=== PATIENT | male | born 1995 | race Caucasian/White ===

== ENCOUNTER 2024-12-05 17:37 | Inpatient (IN) | payer OTHER, BC, MEDICAID, SELFPAY ==
--- NOTE | 2024-12-05 17:43 | ED.C_ITS ---
HPI - Psych General: Stated Complaint: 96 Time Seen by Provider: 12/05/24 17:39 Source: patient and police Mode of arrival: ambulatory Limitations: no limitations History of Present Illness: 29-year-old male who is here with police for acute psychosis. Patient has known schizophrenic has not been taking his psych meds. Patient is been talking to himself and seeing people there. Patient here is hallucinating and quite paranoid. Associated symptoms: Reports auditory hallucinations and visual hallucinations Review of Systems Psych: Reports: visual hallucinations and auditory hallucinations Physical Exam Const: COMMON NORMALS: no acute distress, patient oriented x3 and healthy appearing HENMT: COMMON NORMALS: normocephalic and atraumatic HEAD & SCALP: normocephalic and atraumatic Neck/C-Spine: COMMON NORMALS: full ROM and supple Chest: COMMONS NORMALS: normal inspection of the chest Resp: COMMON NORMALS: normal respiratory effort, No retractions, No use of accessory muscles and clear to auscultation bilaterally AUSCULTATION: clear to auscultation bilaterally Cardio: COMMON NORMALS: regular rate, regular rhythm and No murmurs present (Cardio) RATE: regular rate RHYTHM: regular rhythm GI: COMMON NORMALS: Normal to inspection, nondistended, normoactive bowel sounds present, Soft to palpation, non-tender and no masses PALPATION: Yes Soft to palpation Extremity: COMMON NORMALS: normal to inspection and full ROM Neuro: COMMON NORMALS: patient oriented x3, moves all extremities and no focal motor deficits Psych: COMMON NORMALS: mental status grossly normal and cooperative ATTITUDE: Yes paranoid THOUGHT PROCESS: Loose association thought process present THOUGHT CONTENT: Yes Hallucination(s) present Skin: COMMON NORMALS: no rashes or lesions noted and no wounds GENERAL SKIN EXAM: no rashes or lesions noted [facility] - Psych Medical Decision Making Patient presents for acute psychosis he is hallucinating here. Patient's m edically clear labs are normal he is under 96-hour court hold spoke to Dr. Martínez and will admit the psych santiago here. Medical Records I reviewed the patient's medical records. Lab Data I reviewed the patient's lab results. No radiology studies performed this visit Discharge Plan Discharge Patient Disposition: Admitted As Inpatient Clinical Impression: Acute psychosis Condition: Stable Coding Level of Care Code ED [employer] for Lindsay Ashley
[2024-12-05 17:55] VITALS: BP 158/87; PULSE 79; RESP 18; TEMP 36.7; O2SAT 98
[2024-12-05 18:09] LABS: Hematocrit 45.9 % (37-53); Hemoglobin 15.10 g/dL (11.27-16.99); Mean Corpuscular HGB Conc 32.9 g/dL (30-55); Mean Corpuscular Hemoglobin 29.4 pg (27-33); Mean Corpuscular Volume 89.5 fl (82-101); Nucleated Red Blood Cells % 0 %; Platelet Count 227 10^3/cmm (157-399); Red Blood Count 5.13 10^6/uL (3.85-5.65); White Blood Count 11.05 10^3/uL (3.29-11.43)
[2024-12-05 18:28] LABS: Alanine Aminotransferase 17 U/L (0-41); Albumin Level 4.8 g/dL (3.5-5.2); Alkaline Phosphatase 89 U/L (40-130); Anion Gap 17.1 (5-19); Aspartate Amino Transferase 17 U/L (0-40); Blood Urea Nitrogen 12 mg/dL (6-20); Calcium 9.4 mg/dL (8.5-10.5); Carbon Dioxide 23 mmol/L (22-29); Chloride 103 mmol/L (98-107); Globulin 2.9 g/dL (1.3-4.6); Glucose 84 mg/dL (65-115); Osmolality Calculated 287 mOsm/kg (285-295); Potassium 4.1 mmol/L (3.5-5.1); Sodium 139 mmol/L (136-145); Total Protein 7.7 g/dL (6.6-8.7)
[2024-12-05 18:31] LABS: Acetaminophen < 5.0 ug/mL (10-30); Alcohol Level < 10 mg/dL (0-10); Salicylate < 0.3 mg/dL (3-10)
--- NOTE | 2024-12-05 18:38 | PC.NURSE ---
Pts 96 hour hold rights were read to him. Security present
[2024-12-05 19:13] VITALS: BP 148/85; PULSE 81; O2SAT 99
[2024-12-05 19:20] VITALS: BP 138/92; PULSE 97; RESP 17; TEMP 36.8; O2SAT 97
[2024-12-05 20:37] VITALS: BP 138/92; PULSE 97; RESP 17; TEMP 36.8; O2SAT 97
[2024-12-06 06:00] VITALS: BP 105/69; PULSE 73; RESP 17; TEMP 36.6; O2SAT 97
--- NOTE | 2024-12-06 09:29 | P.NPUHP_ITS ---
Providers/Chief Complaint 2 Admitting Physician: Rodney Moctezuma MD Chief Complaint: 96 HPI NPU History of Present Illness Pankaj Sofia is a 29 year old male who presented to the emergency department accompanied by police on a involuntary hold after he had been paranoid and hallucinating. The patient was admitted to the neuropsychiatric unit for further evaluation and treatment. He reports that he had recently been hospitalized at [facility] for psychiatric issues in June 2024. He reports that he had ran out of his medications several days ago and reports that he has been hearing things. He had reported that he was on certain as to whether the voices were his own or someone else's. He had admitted to using methamphetamine intermittently and stated that he last used approximately 1 week prior to his admission here. He reports that he has been using marijuana heavily for several years since the age of [age] years old. The patient had denied any thought broadcasting or thought insertion. He reported that he felt that his thoughts were his own but did report at times to having conversations with people who were not present. He denied any suicidal thoughts at this time. He reports that he has been homeless and states that he wishes to remain homeless and walked to [place] eventually as he has never visited the [facility]. He had denied any prior history of tamar. He had reported that other doctors had diagnosed him previously with bipolar disorder but he states that he does not believe that that is the case. He had reported previously having been placed on multiple medications including long-acting injectable antipsychotics but stated that he never took those injectables on a monthly basis after he had been discharged from the psychiatric facilities. He currently denies any feelings of hopelessness or worthlessness. The patient was a poor historian. Inpatient psychiatric history: He reports at least 6 different hospitalizations at [facility] with his first hospitalization beginning in February 2023 and his last hospitalization occurring in June 2024. Outpatient psychiatric history: He had reported no prior outpatient follow-up with psychiatric organizations or any prior history of outpatient psychotherapy. He had reported previous medications included Invega Sustenna, Seroquel, Remeron, Cogentin, BuSpar, and gabapentin. Substance abuse history: He had reported no history of outpatient or inpatient substance abuse treatment. He had reported having used methamphetamine beginning 2 years ago and reports marijuana use since the age of 14. Medical history/surgical history: None Allergies: No known drug allergies Legal history: None reported Family psychiatric history: None reported Social history:Patient raised in [place] by both his parents until they when he was a teenager. He had reported that he had graduated high school and went to [employer] for 1 semester until he had quit going to school entirely. He had denied any history of sexual physical or emotional abuse. He has a sister and a half brother. He had reported that he has never been and has no children. He reports that he has struggled with maintaining jobs in the past and describes himself as being homeless. He did not report to his parents as supportive. Meds NPU Home Medications ?Medication ?Instructions ?Recorded ?Confirmed ?Last Taken ?Type No Known Home Medications 12/05/2411/13 Unknown History Mental Status Exam 2 MSE Comments: The patient is a healthy white male who appeared his stated age with normal gait. His hygiene was poor. There was no evidence of any abnormal involuntary motor movements, tics, or tremors appreciated. His speech was slow and steady with some decrease in overall spontaneity appreciated. His volume was normal. His mood was described as okay. His affect was blunted and mood incongruent. His thought process was linear and mostly logical but very superficial. His thought content revealed no suicidal or homicidal ideation. His thought content was impoverished. He did at times appear to be responding to internal stimuli but denied auditory or visual hallucinations despite appearing to have a conversation with someone nearby. There was no evidence of any overt delusions. He was alert and oriented to person place and time. His attention span was poor. His recent and remote memory appeared grossly intact. His insight is poor. His judgment is poor. His impulse control appeared limited. Vitals/I&O/Wt Last Vital Signs Temp 97.9 F 12/06/24 06:00 Pulse 73 12/06/24 06:00 Resp 17 12/06/24 06:00 BP 105/69 12/06/24 06:00 Pulse Ox 97 12/06/24 06:00 O2 Del Method Room Air 12/06/24 06:00 Weight last 48 hrs Weight 77.111 kg Data NPU 12/05/24 17:47 12/05/24 17:47 A&P Assessment and plan 1. Acute psychosis: 2. Schizophrenia, paranoid type: 3. Methamphetamine abuse: Plan: 29-year-old male with multiple inpatient hospitalizations and a history of noncompliance with his medications who presents here having admitted use of methamphetamine and appearing psychotic and on hold. #1.? Engage patient in individual, milieu and group therapy. #2?? Recommend sober living treatment at the highest level of care to which the patient is willing to commit. #3??? Order Urine drug screen. ? #4?? TO-15 minute checks? #5?? Will attempt to gather collateral information including recent hospitalization at [facility] #6. Start Abilify 10mg daily with plan for IM Abilify Sustenna. PDMP PDMP Reviewed: Not Reviewed Involuntary Hold Information 2 Hold Status: Legal Status: 96 Hour Hold Date/Time Hold Expires: 1 @17:45 Attestations NPU 2 Medical Necessity Statement*: Inpatient hospitalization is medically necessary and be clinically appropriate intervention at this time.? We will monitor/initiate medications and make changes as indicated.? He will be in the hospital for over 2 midnights.? The patient's likely length of stay is 7-10 days. Coding Level of Care Code Acute Code for g Fwd Diagnoses Acute psychosis F23 Schizophrenia, paranoid type F20.0 Methamphetamine abuse F15.10
[2024-12-06 13:48] VITALS: BP 114/70; PULSE 88; RESP 18; TEMP 36.8; O2SAT 98
[2024-12-06 17:21] LABS: PCP Screen Urine Negative (Negative)
[2024-12-06 20:11] VITALS: BP 109/65; PULSE 111; RESP 18; TEMP 36.9; O2SAT 98
[2024-12-07 02:17] VITALS: BMI 21.6
[2024-12-07 06:00] VITALS: BP 114/75; PULSE 104; RESP 15; TEMP 36.6; O2SAT 98
[2024-12-07 14:00] VITALS: BP 110/68; PULSE 106; RESP 18; TEMP 37; O2SAT 97
--- NOTE | 2024-12-07 16:29 | P.NPUPN_ITS ---
Subjective NPU 2 Subjective: 29-year-old male with a history of multi ple recent hospitalizations and a history of psychosis admitted with auditory hallucinations and paranoia. The patient's urine screen was negative for amphetamines but positive for marijuana. The patient had been compliant with Abilify. He had reported struggles with concentration. He had been more engaged in self-care as he had showered today without any prompting. He had reported adequate sleep. He had admitted to history of noncompliance with his medication regimen and continued to report that he wished to go to [place]. Mental Status Exam 2 MSE Comments: The patient is a healthy white male who appeared his stated age with normal gait. His hygiene was better today. There was no evidence of any abnormal involuntary motor movements, tics, or tremors appreciated. His speech was slow and steady with some slight increase in productivity compared to prior day. His volume was normal. His mood was described as okay. His affect was blunted and mood incongruent. His thought process was linear and logical with no derailment today. His thought content revealed no suicidal or homicidal ideation. His thought content was impoverished. He did at times appear to be responding to internal stimuli but denied auditory or visual hallucinations despite appearing to have a conversation with someone nearby. There was no evidence of any overt delusions. He was alert and oriented to person place and time. His attention span was poor. His recent and remote memory appeared grossly intact. His insight is poor. His judgment is poor. His impulse control appeared limited. Vitals/I&O/Wt Last Vital Signs Temp 98.6 F 12/07/24 14:00 Pulse 106 H 12/07/24 14:00 Resp 18 12/07/24 14:00 BP 110/68 12/07/24 14:00 Pulse Ox 97 12/07/24 14:00 O2 Del Method Room Air 12/07/24 14:00 Weight last 48 hrs Weight 70.364 kg Weight 77.111 kg Data NPU 12/05/24 17:47 12/05/24 17:47 A&P Assessment and plan 1. Acute psychosis: 2. Schizophrenia, paranoid type: 3. Methamphetamine abuse: Plan: 29-year-old male with multiple inpatient hospitalizations and a history of noncompliance with his medications who presents here having admitted use of methamphetamine and appearing psychotic and on hold. #1.? Engage patient in individual, milieu and group therapy. #2?? Recommend sober living treatment at the highest level of care to which the patient is willing to commit. #3??? Order Urine drug screen. ? #4?? TO-15 minute checks? #5?? Will attempt to gather collateral information including recent hospitalization at [facility] #6. Continue Abilify 10mg daily with plan for IM Abilify Sustenna. PDMP PDMP Reviewed: Not Reviewed Involuntary Hold Information 2 Hold Status: Legal Status: 96 Hour Hold Date/Time Hold Expires: 1 @17:45 Attestations NPU 2 Medical Necessity Statement*: Inpatient hospitalization is medically necessary and be clinically appropriate intervention at this time.? We will monitor/initiate medications and make changes as indicated.? ? The patient's likely length of stay is 7-10 days. Coding Level of Care Code Acute Code for [facility] Fwd Diagnoses Acute psychosis F23 Schizophrenia, paranoid type F20.0 Methamphetamine abuse F15.10
[2024-12-07 20:08] VITALS: BP 120/84; PULSE 100; RESP 18; TEMP 36.6; O2SAT 99
[2024-12-08 06:00] VITALS: BP 108/81; PULSE 91; RESP 17; TEMP 36.7; O2SAT 98
[2024-12-08 14:00] VITALS: BP 110/60; PULSE 82; RESP 17; TEMP 36.7; O2SAT 99
--- NOTE | 2024-12-08 16:32 | P.NPUPN_ITS ---
Subjective NPU 2 Subjective: 29-year-old male with a history of multi ple recent hospitalizations and a history of psychosis admitted with auditory hallucinations and paranoia. The patient had indicated that previously he had been hospitalized multiple times but had never followed up with his outpatient provider to continue on his medications after his inpatient stays. He had reported that he was feeling better. He appeared more engageable on the unit and reported adequate sleep. He reported that he no longer was thinking about going to the [facility] but would be agreeable to staying in [place] and following up at [place] as they had previously recommended a few hospitalizations ago. He reported no side effects from his Abilify. Mental Status Exam 2 MSE Comments: The patient is a healthy white male who appeared his stated age with normal gait. His hygiene was better today. There was no evidence of any abnormal involuntary motor movements, tics, or tremors appreciated. His speech was slow and steady with some slight increase in productivity compared to prior day. His volume was normal. His mood was described as okay. His affect was blunted and mood incongruent. His thought process was linear and logical with no derailment today. His thought content revealed no suicidal or homicidal ideation with no evidence of impoverished speech. He did at times appear to be responding to internal stimuli but denied auditory or visual hallucinations despite appearing to have a conversation with someone nearby. There was no evidence of any overt delusions. He was alert and oriented to person place and time. His attention span was poor. His recent and remote memory appeared grossly intact. His insight is poor. His judgment is poor. His impulse control appeared limited. Vitals/I&O/Wt Last Vital Signs Temp 98.0 F 12/08/24 14:00 Pulse 82 12/08/24 14:00 Resp 17 12/08/24 14:00 BP 110/60 12/08/24 14:00 Pulse Ox 99 12/08/24 14:00 O2 Del Method Room Air 12/08/24 14:00 Weight last 48 hrs Weight 70.364 kg Data NPU 12/05/24 17:47 12/05/24 17:47 A&P Assessment and plan 1. Acute psychosis: 2. Schizophrenia, paranoid type: 3. Methamphetamine abuse: Plan: 29-year-old male with multiple inpatient hospitalizations and a history of noncompliance with his medications who presents here having admitted use of methamphetamine and appearing psychotic and on hold. #1.? Engage patient in individual, milieu and group therapy. #2?? Recommend sober living treatment at the highest level of care to which the patient is willing to commit. #3??? Order Urine drug screen. ? #4?? TO-15 minute checks? #5?? Will attempt to gather collateral information including recent hospitalization at [facility] #6. Increase Abilify to 15mg daily with plan for IM Abilify Sustenna. PDMP PDMP Reviewed: Not Reviewed Involuntary Hold Information 2 Hold Status: Legal Status: 96 Hour Hold Date/Time Hold Expires: 1 @17:45 Attestations NPU 2 Medical Necessity Statement*: Inpatient hospitalization is medically necessary and be clinically appropriate intervention at this time.? We will monitor/initiate medications and make changes as indicated.? ? The patient's likely length of stay is 7-10 days. Coding Level of Care Code Acute Code for [facility] Fwd Diagnoses Acute psychosis F23 Schizophrenia, paranoid type F20.0 Methamphetamine abuse F15.10
[2024-12-08 19:22] VITALS: BP 124/85; PULSE 95; RESP 16; TEMP 36.6; O2SAT 97
[2024-12-09 06:00] VITALS: BP 115/81; PULSE 74; RESP 18; TEMP 36.9; O2SAT 98
[2024-12-09 13:54] VITALS: BP 116/79; PULSE 90; RESP 18; TEMP 36.4; O2SAT 100
--- NOTE | 2024-12-09 15:13 | P.NPUPN_ITS ---
Subjective NPU 2 Subjective: 29-year-old male with a history of multi ple recent hospitalizations and a history of psychosis admitted with auditory hallucinations and paranoia. He had admitted to the use of methamphetamine approximately 5 days prior to his admission here. He had stated that he would prefer to live homeless in [place] stating that he liked living homeless. He had continued to state that he would like to take the Abilify oral only and that of the intramuscular Abilify. Patient had provided significant evidence to support that he had failed to take oral medications to target psychosis after each of his prior admissions thus leading to decompensation and another admission. He continued to report that he was feeling better but continued to isolate himself in his room as he stated that he did not like being around others. He did not endorse thoughts of hurting himself or others. Mental Status Exam 2 MSE Comments: The patient is a healthy white male who appeared his stated age with normal gait. His hygiene was better today. There was no evidence of any abnormal involuntary motor movements, tics, or tremors appreciated. His speech was decreased in rate, normal in volume and prosody. His mood was described as okay. His affect was blunted and mood incongruent. His thought process was linear and logical with no derailment today. His thought content revealed no suicidal or homicidal ideation with no evidence of impoverished speech. He did at times appear to be responding to internal stimuli today. There was no evidence of any overt delusions. He was alert and oriented to person place and time. His attention span was poor. His recent and remote memory appeared grossly intact. His insight is poor. His judgment is poor. His impulse control appeared limited. Vitals/I&O/Wt Last Vital Signs Temp 97.6 F 12/09/24 13:54 Pulse 90 12/09/24 13:54 Resp 18 12/09/24 13:54 BP 116/79 12/09/24 13:54 Pulse Ox 100 12/09/24 13:54 O2 Del Method Room Air 12/09/24 13:54 Data NPU 12/05/24 17:47 12/05/24 17:47 A&P Assessment and plan 1. Acute psychosis: 2. Schizophrenia, paranoid type: 3. Methamphetamine abuse: Plan: 29-year-old male with multiple inpatient hospitalizations and a history of noncompliance with his medications who presents here having admitted use of methamphetamine and appearing psychotic and on hold. #1.? Engage patient in individual, milieu and group therapy. #2?? Recommend sober living treatment at the highest level of care to which the patient is willing to commit. #3??? Order Urine drug screen. ? #4?? TO-15 minute checks? #5?? Will attempt to gather collateral information including recent hospitalization at [facility] #6. Increase Abilify to 15mg daily with plan for IM Abilify Maintena. PDMP PDMP Reviewed: Not Reviewed Involuntary Hold Information 2 Hold Status: Legal Status: 96 Hour Hold Date/Time Hold Expires: 12/11/2024 @ 3005 Attestations NPU 2 Medical Necessity Statement*: Inpatient hospitalization is medically necessary and be clinically appropriate intervention at this time.? We will monitor/initiate medications and make changes as indicated.? ? The patient's likely length of stay is 5-7 days. Coding Level of Care Code Acute Code for [facility] Fwd Diagnoses Acute psychosis F23 Schizophrenia, paranoid type F20.0 Methamphetamine abuse F15.10
[2024-12-09 20:04] VITALS: BP 119/83; PULSE 95; RESP 18; TEMP 36.5; O2SAT 97
[2024-12-10 06:00] VITALS: BP 113/78; PULSE 87; RESP 16; TEMP 36.3; O2SAT 98
[2024-12-10 13:56] VITALS: BP 125/86; PULSE 102; RESP 16; TEMP 36.3; O2SAT 100
--- NOTE | 2024-12-10 16:01 | P.NPUPN_ITS ---
Subjective NPU 2 Subjective: 29-year-old male with a history of multi ple recent hospitalizations and a history of psychosis admitted with auditory hallucinations and paranoia. The patient had preferred to live homeless stating that he would go to a intermediate. He did not wish to have contact with his family. He had reported a long history of methamphetamine use. He had also reported a history of noncompliance with his medications. He had been compliant with his Abilify oral and stated that he did not wish to consider an injection of Abilify despite its potential benefits. He had reported that the voices were present but less distracting to him but were present. He continued to isolate himself on the milieu. He had shown some improvement in self-care. Mental Status Exam 2 MSE Comments: The patient is a healthy white male who appeared his stated age with normal gait. His hygiene was better today. There was no evidence of any abnormal involuntary motor movements, tics, or tremors appreciated. His speech was more productive in rate, normal in volume and prosody. His mood was described as okay. His affect was blunted and mood incongruent. His thought process was linear and logical with no derailment today. His thought content revealed no suicidal or homicidal ideation with no evidence of impoverished speech. He did not appear to be responding to internal stimuli. There was no evidence of any overt delusions. He was alert and oriented to person, place, and time. His attention span was poor. His recent and remote memory appeared grossly intact. His insight is poor. His judgment is improving. His impulse control appeared limited. Vitals/I&O/Wt Last Vital Signs Temp 97.4 F L 12/10/24 13:56 Pulse 102 H 12/10/24 13:56 Resp 16 12/10/24 13:56 BP 125/86 12/10/24 13:56 Pulse Ox 100 12/10/24 13:56 O2 Del Method Room Air 12/10/24 06:00 Data NPU 12/05/24 17:47 12/05/24 17:47 A&P Assessment and plan 1. Acute psychosis: 2. Schizophrenia, paranoid type: 3. Methamphetamine abuse: Plan: 29-year-old male with multiple inpatient hospitalizations and a history of noncompliance with his medications who presents here having admitted use of methamphetamine and appearing psychotic and on hold. #1.? Engage patient in individual, milieu and group therapy. #2?? Recommend sober living treatment at the highest level of care to which the patient is willing to commit. #3??? Observe under umbrella of involuntary hold. ? #4?? TO-15 minute checks? #5?? Will attempt to gather collateral information including recent hospitalization at [facility] #6. Continue Abilify to 15mg daily with plan for IM Abilify Maintena. PDMP PDMP Reviewed: Not Reviewed Involuntary Hold Information 2 Hold Status: Legal Status: 96 Hour Hold Date/Time Hold Expires: 12/11/2024 @ 1745 Attestations NPU 2 Medical Necessity Statement*: Inpatient hospitalization is medically necessary and be clinically appropriate intervention at this time.? We will monitor/initiate medications and make changes as indicated.? ? The patient's likely length of stay is 5-7 days. Coding Level of Care Code Acute Code for [facility] Fwd Diagnoses Acute psychosis F23 Schizophrenia, paranoid type F20.0 Methamphetamine abuse F15.10
[2024-12-10 20:08] VITALS: BP 136/92; PULSE 85; RESP 16; TEMP 36.9; O2SAT 100
[2024-12-11 06:00] VITALS: BP 114/76; PULSE 81; RESP 16; TEMP 36.6; O2SAT 99
[2024-12-11] MEDS: ARIPiprazole Maintena 400 MG IM (10:33)
--- NOTE | 2024-12-11 13:34 | W.PM.NPUDCS ---
Diagnoses at Discharge Discharge Diagnosis 1. Acute psychosis: 2. Schizophrenia, paranoid type: 3. Methamphetamine abuse: Reason for Visit Reason for Visit: 96 Brief History: History of Present Illness Pankaj Sofia is a 29 year old male who presented to the emergency department accompanied by police on a involuntary hold after he had been paranoid and hallucinating. The patient was admitted to the neuropsychiatric unit for further evaluation and treatment. He reports that he had recently been hospitalized at [facility] for psychiatric issues in June 2024. He reports that he had ran out of his medications several days ago and reports that he has been hearing things. He had reported that he was on certain as to whether the voices were his own or someone else's. He had admitted to using methamphetamine intermittently and stated that he last used approximately 1 week prior to his admission here. He reports that he has been using marijuana heavily for several years since the age of [age] years old. The patient had denied any thought broadcasting or thought insertion. He reported that he felt that his thoughts were his own but did report at times to having conversations with people who were not present. He denied any suicidal thoughts at this time. He reports that he has been homeless and states that he wishes to remain homeless and walked to [place] eventually as he has never visited the [facility]. He had denied any prior history of tamar. He had reported that other doctors had diagnosed him previously with bipolar disorder but he states that he does not believe that that is the case. He had reported previously having been placed on multiple medications including long-acting injectable antipsychotics but stated that he never took those injectables on a monthly basis after he had been discharged from the psychiatric facilities. He currently denies any feelings of hopelessness or worthlessness. The patient was a poor historian. Inpatient psychiatric history: He reports at least 6 different hospitalizations at [facility] with his first hospitalization beginning in February 2023 and his last hospitalization occurring in June 2024. Outpatient psychiatric history: He had reported no prior outpatient follow-up with psychiatric organizations or any prior history of outpatient psychotherapy. He had reported previous medications included Invega Sustenna, Seroquel, Remeron, Cogentin, BuSpar, and gabapentin. Substance abuse history: He had reported no history of outpatient or inpatient substance abuse treatment. He had reported having used methamphetamine beginning 2 years ago and reports marijuana use since the age of 14. Medical history/surgical history: None Allergies: No known drug allergies Legal history: None reported Family psychiatric history: None reported Social history:Patient raised in [facility] by both his parents until they when he was a teenager. He had reported that he had graduated high school and went to [employer] for 1 semester until he had quit going to school entirely. He had denied any history of sexual physical or emotional abuse. He has a sister and a half brother. He had reported that he has never been and has no children. He reports that he has struggled with maintaining jobs in the past and describes himself as being homeless. He did not report to his parents as supportive. Hospital Course Hospital Course During the hospitalization, the patient had routine laboratory studies which were within normal limits except for a few outliers.? Additionally, there was a general medical evaluation which was also within normal limits and revealed no new acute processes.? At the time of discharge, lethality was denied and psychosis was improving. ? Mood and anxiety were well managed.? The patient endorsed a plan to avoid all drugs of abuse and follow up with the aftercare recommendations of the treatment team.? The patient was evaluated and deemed to be absent credible lethality and had achieved the maximum benefit from an inpatient hospitalization, and so was discharged. The patient had revealed a history of multiple inpatient hospitalizations that had been initially induced by the use of methamphetamine. He had reported no prior history of following up with an outpatient mental health clinic or a psychiatrist for further treatment. It was strongly encouraged after starting Abilify oral that the patient be given a monthly shot given his history of noncompliance. He was ultimately agreeable to taking the an Abilify maintainer at 400 mg IM at the time of discharge.? Involuntary Hold Information Hold Status: Legal Status: 96 Hour Hold Date/Time Hold Expires: 12/11/2024 @ 1745 Mental Status Exam MSE Comments: The patient is a healthy white male who appeared his stated age with normal gait. His hygiene was better today. There was no evidence of any abnormal involuntary motor movements, tics, or tremors appreciated. His speech was more productive in rate, normal in volume and prosody. His mood was described as okay. His affect remained blunted. His thought process was linear and logical with no derailment today. His thought content revealed no suicidal or homicidal ideation with no evidence of impoverished speech. He did not appear to be responding to internal stimuli. There was no evidence of any overt delusions. He was alert and oriented to person, place, and time. His attention span was improving. His recent and remote memory appeared grossly intact. His insight is poor. His judgment is improving. His impulse control appeared better on discharge. Discharge Data Studies Completed and Pending: Laboratory Results WBC 11.05 10^3/uL (3. 29-11.43) 12/05/24 17:47 RBC 5.13 10^6/uL (3.8 5-5.65) 12/05/24 17:47 Hgb 15.10 g/dL (11.27 -16.99) 12/05/24 17:47 Hct 45.9 % (37-53) 12/05/24 17:47 MCV 89.5 fl (82-101) 12/05/24 17:47 MCH 29.4 pg (27-33) 12/05/24 17:47 MCHC 32.9 g/dL (30-55) 12/05/24 17:47 RDW 13.2 % (12.1-15.1 ) 12/05/24 17:47 Plt Count 227 10^3/cmm (157 -399) 12/05/24 17:47 MPV 10.7 fL (7.4-10.4 ) H 12/05/24 17:47 Neut % (Auto) 64.5 % 12/05/24 17:47 Lymph % (Auto) 25.9 % 12/05/24 17:47 Bleckley % (Auto) 6.7 % 12/05/24 17:47 Eos % (Auto) 1.4 % 12/05/24 17:47 Baso % (Auto) 1.1 % 12/05/24 17:47 Neut # (Auto) 7.14 10^3/uL (1.8 -7.7) 12/05/24 17:47 Lymph # (Auto) 2.9 10^3/uL (0.8- 4.8) 12/05/24 17:47 Bleckley # (Auto) 0.7 10^3/uL (0.2- 0.9) 12/05/24 17:47 Eos # (Auto) 0.2 10^3/uL (0.0- 0.8) 12/05/24 17:47 Baso # (Auto) 0.1 10^3/uL (0.0- 0.1) 12/05/24 17:47 Nucleated RBC % (a uto) 0 % 12/05/24 17:47 Nucleated RBCs # 0.0 /100WBC 12/05/24 17:47 Sodium 139 mmol/L (136-1 45) 12/05/24 17:47 Potassium 4.1 mmol/L (3.5-5 .1) 12/05/24 17:47 Chloride 103 mmol/L (98-10 7) 12/05/24 17:47 Carbon Dioxide 23 mmol/L (22-29) 12/05/24 17:47 Anion Gap 17.1 (5-19) 12/05/24 17:47 BUN 12 mg/dL (6-20) 12/05/24 17:47 Creatinine 0.9 mg/dL (0.7-1. 2) 12/05/24 17:47 GFR Calculation 101.2 mL/min (90- 130) 12/05/24 17:47 Glucose 84 mg/dL (65-115) 12/05/24 17:47 Calculated Osmolal ity 287 mOsm/kg (285- 295) 12/05/24 17:47 Calcium 9.4 mg/dL (8.5-10 .5) 12/05/24 17:47 Total Bilirubin 0.6 mg/dL (0.15-1 .2) 12/05/24 17:47 AST 17 U/L (0-40) 12/05/24 17:47 ALT 17 U/L (0-41) 12/05/24 17:47 Alkaline Phosphata se 89 U/L (40-130) 12/05/24 17:47 Total Protein 7.7 g/dL (6.6-8.7 ) 12/05/24 17:47 Albumin 4.8 g/dL (3.5-5.2 ) 12/05/24 17:47 Globulin 2.9 g/dL (1.3-4.6 ) 12/05/24 17:47 Salicylates < 0.3 mg/dL (3-10 ) L 12/05/24 17:47 Urine Opiates Scre en Negative ng/mL (N egative) 12/06/24 16:54 Acetaminophen < 5.0 ug/mL (10-3 0) L 12/05/24 17:47 Ur Barbiturates Sc reen Negative ng/mL (N egative) 12/06/24 16:54 Ur Phencyclidine S crn Negative ng/mL (N egative) 12/06/24 16:54 Ur Amphetamines Sc reen Negative ng/mL (N egative) 12/06/24 16:54 U Benzodiazepines Scrn Negative ng/mL (N egative) 12/06/24 16:54 Urine Cocaine Scre en Negative ng/mL (N egative) 12/06/24 16:54 U Marijuana (THC) Screen Positive ng/mL (N egative) H 12/06/24 16:54 Ethyl Alcohol < 10 mg/dL (0-10) 12/05/24 17:47 Vitals: Last Vital Signs Temp 97.9 F 12/11/24 06:00 Pulse 81 12/11/24 06:00 Resp 16 12/11/24 06:00 BP 114/76 12/11/24 06:00 Pulse Ox 99 12/11/24 06:00 O2 Del Method Room Air 12/11/24 06:00 Discharge Plan Discharge Patient Disposition: Home Condition: Stable Prescriptions: New aripiprazole 15 mg tablet 15 mg PO DAILY 14 Days Qty: 14 0RF Rx Instructions: Take one tablet daily for 14 days then discontinue (patient now on monthly shot of IM Abilify Maintena Abilify Maintena 400 mg suspension,extended rel recon 400 mg IM Q28D Qty: 1 1RF Rx Instructions: Next shot IM Abilify due on 01/08/25 Discharge Order = DC NOW: Discharge Order (Routine); Ordered 12/11/24 Ordered By: Rodney Moctezuma Referrals: [facility] [Other] Referral Note: You can go there for daily meals and clothing items. You can get a bed there if available and no warrents for arrest. [facility] [Other] Referral Note: Open 8am to 6pm 7 days a week. Come in for information on community services, case management, therapy, and showers. [facility] [Outside] - 12/17/24 9:30 am Referral Note: Initial assessment for services with Erin Discharge Diet: Usual diet Discharge Activity: Resume usual activity Patient Instructions: Opioid Safety, Patient Portal & Jorge Instructions Discharge Attestations NPU Time Spent in Discharge Care*: less than 30 min Coding Level of Care Code Acute Code for Chg Fwd Diagnoses Acute psychosis F23 Schizophrenia, paranoid type F20.0 Methamphetamine abuse F15.10
[2024-12-11 14:00] VITALS: BP 142/92; PULSE 108; RESP 17; TEMP 36.7; O2SAT 100
[2024-12-11 16:09] VITALS: BP 142/92; PULSE 108; RESP 17; TEMP 36.7; O2SAT 100
== END 2024-12-11 16:10 | disposition home or self-care (01) | DRG 885 ==
LOC: ER 18:43 → NP 19:00
PROVIDERS: Admitting Provider Psychiatry & Neurology Psychiatry; Emergency Provider Emergency Medicine; Visit Provider Psychiatry & Neurology Psychiatry
DX: F20.0 Paranoid schizophrenia (principal); F15.10 Other stimulant abuse, uncomplicated; Z59.00 Homelessness unspecified; Z91.199 Patient's noncompliance with other medical treatment and regimen due to unspecified reason
CPT/HCPCS: 36415; 80053; 80306; 80307; 85025; 96372; 97165; 99285; J9999